=== PATIENT | male | born 1945 | race Caucasian/White ===

== ENCOUNTER → 2017-12-14 | Outpatient (CLI) | payer OTHER ==
[~2017-12-14] VITALS: Ht 167.6 cm; Wt 70.3 kg
[~2017-12-14] MED LIST: ADULT LOW DOSE81 MG PO; ALPRAZOLAM 0.0.25 M1 PO; ALTACE10 M1 PO; AMBIEN 10 MG TA10 MG PO; CARVEDILOL12.5 MG PO; CEFDINIR PO; CELEBREX 200 M200 M1 PO; CELLCEPT500 MG PO; CLARITIN10 MG PO; DARVOCET-N 1001 EACH PO; DIPROLENE 0.05%15 GM TP; DIPROLENE AF 0.15 GM TP; FISH OIL 1,0001 EAC5 PO; FLONASE; HYDROXYZINE HCL10 M1 PO; LIPITOR40 MG PO; LORTAB 7.5/5001 TA1 PO; LOZOL PO; MEDROLDOSEPACK PO; MOBIC7.5 MG PO; MULTIPLE VITAM1 EAC3 PO; NABUMETONE 500500 M1 PO; NEXIUM20 M1 PO; NIASPAN ER 101000 M1 PO; NORCO 5-325 TA1 EACH PO; PERCOCET 5-3251 EACH PO; PERCOCET PO; RESTASIS1 EACH OP; TACLONEX OINTME60 GM TP; ZADITOR5 M1 OP; ZETIA10 MG PO; ZYRTEC 10 MG TA10 MG PO; ZYRTEC10 M2 PO
--- NOTE | ~2017-12-14 | HPC ---
[facility] [place] [address] PAIN MANAGEMENT CONSULTATION Name: MELANIE PONCE Room #: REG [facility]..#: [id number] Admission: 12/14/17 Attend Phys: Mikey Brady DO Discharge: Date of : 46 Report #: [id number] THIS REPORT FOR: //name// CC: Mikey Deleon MD DATE OF SERVICE: 12/14/2017 REFERRING PHYSICIAN: Marek Deleon MD CHIEF COMPLAINT: Low back pain, left lower extremity pain and paresthesias. HISTORY OF PRESENT ILLNESS: As you know, the patient is a 72-year-old male with longstanding history of low back pain, left lower extremity pain and paresthesias. The patient states he had an exacerbation of symptoms that began 06/09/2017. He denies specific injury or trauma that may have led to symptom development. The patient was seen in consultation on 12/06/2017, diagnosed with presumptive diagnosis of lumbar radiculopathy with concerns of displaced lumbar intervertebral disks. The patient was subsequently sent for MRI to further evaluate his condition and so that more definitive treatment options could be discussed. We did discuss at length generalized treatment options for lumbar radicular symptoms. He returns today in followup visit indicating a pain level of approximately 2-3/10. He wishes to review his MRI and to discuss the possibility of undergoing a lumbar epidural injection if it is appropriate. ALLERGIES: SULFA, CARISOPRODOL, KEFLEX, LEVOFLOXACIN, and CEFDINIR. CURRENT MEDICATIONS: Percocet 5/325 one tab every 12 hours p.r.n. for pain, nabumetone 500 mg twice a day, CellCept 500 mg once a day, celecoxib 200 mg twice a day, zolpidem 10 mg p.o. at bedtime, Zetia 10 mg per day, hydroxyzine 10 mg p.o. at bedtime, carvedilol 12.5 mg twice a day, aspirin 81 mg per day, omega-3 fish oil 1 tab per day, alprazolam 0.25 mg p.r.n., Zaditor one drop each eye per day, omeprazole 20 mg per day, atorvastatin 40 mg per day, ramipril 10 mg per day, fluticasone 1 spray each nostril per day. SOCIAL HISTORY: The patient denies tobacco, alcohol, IV or illicit drug use. 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 IMAGING: MRI of the lumbar spine obtained 12/13/2017, shows T12-L1 and L1-L2 unremarkable. L2-L3, mild circumferential disk bulge, mild narrowing of the neural foramen, mild facet arthropathy. L3-L4, progressive narrowing of disk space, foraminal stenosis noted, post-surgical changes noted, thecal sac measuring 1.3 cm. L4-L5, redemonstration of marked narrowing of disk space, diffuse annular disk bulge, facet hypertrophy noted, neural foraminal [address] [address] PAIN MANAGEMENT CONSULTATION Name: MELANIE PONCE Room #: MAYNOR [facility]#: [id number] Admission: 12/14/17 Attend Phys: Mikey Brady DO Discharge: Date of : 46 Report #: [id number] encroachment noted, posterior left element surgical changes suggested. Thecal sac measures 1.7 cm. L5-S1, marked narrowing of disk space, circumferential disk bulge, progression noted compared to previous exam, abutment of the anterior S1 nerve roots noted, neural foraminal narrowing encroachment is severe, abutment of the medial left L5 nerve root, greater on the left that the right, greater displacement and abutment of the left S1 nerve root is also noted. PHYSICAL EXAMINATION: VITAL SIGNS: Blood pressure 112/77, pulse is 68, respiratory rate 16, unlabored, the patient is 98% on room air, height 5 feet 6 inches tall, weight 155 pounds, and BMI calculated 25. GENERAL: Well-developed, well-nourished, well-hydrated 72-year-old male, he appears his stated age, he is placing current pain score at 2-3/10. HEENT: Normocephalic, atraumatic. Pupils are equal, round, and reactive to light. Extraocular muscles are intact. EXTREMITIES: Show no clubbing, no cyanosis, and no edema. MUSCULOSKELETAL: Lower extremity strength remains symmetrical 5/5. His gait is mildly antalgic favoring left lower extremity. Seated straight leg raising negative. Supine straight leg raising positive on the left. Fransisco's test negative. ASSESSMENT: 1. Symptomatic lumbar radiculopathy. 2. Displacement of lumbar intervertebral disk with radiculopathy. 3. Severe neural foraminal stenosis of lumbar spine. 4. Lumbosacral spondylosis with radiculopathy. 5. Failed lumbar spine surgery. 6. Lumbar degeneration. 7. Chronic intractable pain. PLAN: 1. The patient returns today in followup visit where we reviewed his MRI in its entirety. We took 22 minutes of time to discuss the MRI and the findings therein and to correlate to his current physical findings. It does appear the patient is suffering from changes at the L5-S1 level, which is consistent with the findings on physical exam. We discussed with the patient the options for treatment after reviewing the MRI, following was discussed with the patient today. We discussed physical therapy, stretching exercises and core strengthening as a treatment option. We discussed medication management with the addition of a neuropathic pain medication in conjunction with his already provided opioids. We discussed epidural injection under fluoroscopic guidance, spinal cord stimulator therapy and surgical options. After reviewing risks and benefits of all proposed treatment options, the patient chose to undergo epidural injection [facility] [address] [place] [address] PAIN MANAGEMENT CONSULTATION Name: MELANIE PONCE Room #: REG TIEN [place]#: [id number] Admission: 12/14/17 Attend Phys: Mikey Brady DO Discharge: Date of : 46 Report #: [id number] under fluoroscopic guidance. 2. The patient was advised risks and benefits of a lumbar epidural injection, these risks include, but are not necessarily limited to bleeding, bruising, infection, worsening of pain, no relief of pain, also risk of temporary or permanent muscle weakness, temporary or permanent nerve damage, possible paralysis and . The patient states understood and wished to proceed. 3. No medication changes made at today's visit, the patient continues current medical therapy as previously prescribed. 4. We will see the patient back in followup visit on an as needed basis for possible next in the series of epidural injections. PROCEDURE NOTE DESCRIPTION OF PROCEDURE: L5-S1 left paramedian epidural steroid injection under fluoroscopic guidance. This is the first procedure of the first series that the patient is undergoing. After obtaining written consent, the patient was taken back to the fluoroscopy suite, placed in a prone position with pillow under the abdomen to decrease lumbar lordosis. The skin overlying the lumbosacral area was then prepped and draped in aseptic fashion. The L5-S1 vertebral interspace was then identified by AP fluoroscopy. The skin and subcutaneous tissue overlying the target site of injection was anesthetized with 3 mL 1% lidocaine. A 20-gauge 3-1/2-inch Tuohy needle was then advanced under fluoroscopic guidance towards the epidural space using a left paramedian approach. The epidural space was identified using loss of resistance to air technique. After negative aspiration for heme or cerebrospinal fluid, a total of 0.5 mL of Omnipaque was injected. A lumbar epidurogram was confirmed using both AP and lateral fluoroscopy. After negative aspiration for heme or cerebrospinal fluid, 5 mL of a solution containing 2 mL 40 mg per mL, 80 mg total triamcinolone, 3 mL lidocaine 1% was injected in increments. Contrast spread was noted posterior epidural space. The needle was then retracted approximately half way and needle tract flushed with 1 mL of 1% lidocaine. Needle was then removed. There were no apparent sensory or motor deficits in the lower extremity following the procedure. A sterile bandage was placed over the injection site. The heart rate, pulse, oximetry and blood pressure were continuously monitored after the procedure. There were no apparent complications. The patient tolerated the procedure well and was carefully escorted [place] [address] PAIN MANAGEMENT CONSULTATION Name: MELANIE PONCE Room #: REG TIEN [place]#: [id number] Admission: 12/14/17 Attend Phys: Mikey Brady DO Discharge: Date of : 46 Report #: [id number] stable condition. There were no apparent complications. After meeting discharge criteria, the patient was then discharged home. <ELECTRONICALLY SIGNED> By: Mikey Brady DO 12/20/17 1441 0801 1341 Mikey Brady DO /nt
[2017-12-14 08:39] VITALS: BP 112/77
== END | disposition home or self-care (01) ==
LOC: PAIN 06:40
DX: M51.16 Intervertebral disc disorders with radiculopathy, lumbar region (principal); M48.061 Spinal stenosis, lumbar region without neurogenic claudication; M47.27 Other spondylosis with radiculopathy, lumbosacral region; M96.1 Postlaminectomy syndrome, not elsewhere classified; G89.29 Other chronic pain; Z88.2 Allergy status to sulfonamides; Z88.8 Allergy status to other drugs, medicaments and biological substances; Z79.899 Other long term (current) drug therapy; Z79.82 Long term (current) use of aspirin

== ENCOUNTER → 2017-12-28 | Outpatient (CLI) | payer OTHER ==
[~2017-12-28] VITALS: Ht 162.6 cm; Wt 70.0 kg
--- NOTE | ~2017-12-28 | HPC ---
[facility] [address] [place] [address] PAIN MANAGEMENT CONSULTATION Name: MELANIE PONCE Room #: REG [facility]..#: [id number] Admission: 12/28/17 Attend Phys: Mikey Brady DO Discharge: Date of : 46 Report #: [id number] THIS REPORT FOR: //name// CC: Mikey Deleon MD DATE OF SERVICE: 12/28/2017 REFERRING PHYSICIAN: Marek Deleon MD CHIEF COMPLAINT: Low back pain, left lower extremity pain and paresthesias. HISTORY OF PRESENT ILLNESS: As you know, the patient is a very pleasant 72-year-old male who returns today in followup visit reporting a 50% improvement in overall pain with the epidural injection provided at last visit. He returns today in followup visit with pain score 3/10, states pain is exacerbated with standing and walking long distances, it improves with sitting and epidural injections. He indicates pain radiates from the left low back to the left buttock and down to the left leg, all the way down to the foot. He returns to undergo the second in series of epidural injections under fluoroscopic guidance to build on success of previous intervention. The patient denies new injury, new trauma or any changes in medical history since our last visit. ALLERGIES: SULFA, CARISOPRODOL, CEPHALEXIN, LEVOFLOXACIN, and CEFDINIR. CURRENT MEDICATIONS: CellCept, celecoxib, zolpidem, Zetia, hydroxyzine, carvedilol, Diprolene, oxycodone, Taclonex, aspirin, omega-3 fish oil, alprazolam, Zaditor, omeprazole, atorvastatin, ramipril, fluticasone, and cetirizine. SOCIAL HISTORY: The patient denies tobacco, alcohol, IV or illicit drug use. 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 IMAGING: No new imaging available. PHYSICAL EXAMINATION: VITAL SIGNS: Blood pressure 117/78, pulse 64, respiratory rate 14 and unlabored, the patient is 100% on room air, height 5 feet 4 inches tall, weight 154.4 pounds, and BMI calculated 26.5. GENERAL: Well-developed, well-nourished, well-hydrated 72-year-old male, he appears his stated age, placing current pain score around 3/10. HEENT: Normocephalic, atraumatic. Pupils are equal, round, and reactive to light. EXTREMITIES: Show no clubbing, no cyanosis, and no edema. [address] [address] PAIN MANAGEMENT CONSULTATION Name: MELANIE PONCE Room #: REG [facility] Amor#: [id number] Admission: 12/28/17 Attend Phys: Mikey Brady DO Discharge: Date of : 46 Report #: [id number] MUSCULOSKELETAL: Seated straight leg raising negative. Supine straight leg raising positive on the left. Fransisco's test negative. Modified Gaenslen's positive for axial low back pain. Gait mildly antalgic favoring left lower extremity over right. Muscle bulk and tone equal and symmetrical in lower extremities. ASSESSMENT: 1. Symptomatic lumbar radiculopathy. 2. Displacement of lumbar intervertebral disk with radiculopathy. 3. Severe neural foraminal stenosis of lumbar spine. 4. Lumbosacral spondylosis with radiculopathy. 5. Failed lumbar spine surgery. 6. Lumbar degeneration. 7. Chronic intractable pain. PLAN: 1. The patient returns today in followup visit having reported a 50% improvement in overall pain with the epidural injection provided at last visit. He is excited to undergo next in the series of epidural injections in hopes of building on success of previous intervention. The patient and I discussed the risks and the benefits of the procedure, he states he understood and wished to proceed. 2. No medication changes were made at today's visit, the patient will continue current medical therapy as previously prescribed. 3. We will see the patient back in followup visit on an as needed basis for the third and final epidural injection in the 6 months to address lumbar radicular symptoms and his left lower extremity pain with paresthesias. PROCEDURE NOTE DESCRIPTION OF PROCEDURE: L5-S1 left paramedian epidural steroid injection under fluoroscopic guidance. This is the second procedure of the first series that the patient is undergoing. After obtaining written consent, the patient was taken back to the fluoroscopy suite, placed in a prone position with pillow under the abdomen to decrease lumbar lordosis. The skin overlying the lumbosacral area was then prepped and draped in aseptic fashion. The L5-S1 vertebral interspace was then identified by AP fluoroscopy. The skin and subcutaneous tissue overlying the target site of injection was anesthetized with 3 mL 1% lidocaine. A 20-gauge 3-1/2-inch Tuohy needle was then advanced under fluoroscopic guidance towards the epidural space using a left paramedian approach. The epidural space was identified using loss of resistance to air technique. After negative aspiration for heme or cerebrospinal fluid, a total of 1 mL of Omnipaque was [address] [address] PAIN MANAGEMENT CONSULTATION Name: MELANIE PONCE Room #: MAYNOR [facility]#: [id number] Admission: 12/28/17 Attend Phys: Mikye Brady DO Discharge: Date of : 46 Report #: [id number] injected. A lumbar epidurogram was confirmed using both AP and lateral fluoroscopy. After negative aspiration for heme or cerebrospinal fluid, 5 mL of a solution containing 2 mL 40 mg per mL, 80 mg total triamcinolone, 3 mL lidocaine 1% was injected in increments. Contrast spread was noted posterior epidural space. The needle was then retracted approximately half way and needle tract flushed with 1 mL of 1% lidocaine. Needle was then removed. There were no apparent sensory or motor deficits in the lower extremity following the procedure. A sterile bandage was placed over the injection site. The heart rate, pulse, oximetry and blood pressure were continuously monitored after the procedure. There were no apparent complications. The patient tolerated the procedure well and was carefully escorted to the recovery room in stable condition. There were no apparent complications. After meeting discharge criteria, the patient was then discharged home. <ELECTRONICALLY SIGNED> By: Mikey Brady DO 12/29/17 0817 0920 1642 Mikey Brady DO /nt
[2017-12-28 08:38] VITALS: BP 117/78
== END | disposition home or self-care (01) ==
LOC: PAIN 07:29
DX: M51.16 Intervertebral disc disorders with radiculopathy, lumbar region (principal); M48.061 Spinal stenosis, lumbar region without neurogenic claudication; M47.27 Other spondylosis with radiculopathy, lumbosacral region; M96.1 Postlaminectomy syndrome, not elsewhere classified; G89.29 Other chronic pain; Z88.2 Allergy status to sulfonamides; Z88.8 Allergy status to other drugs, medicaments and biological substances; Z79.891 Long term (current) use of opiate analgesic; Z79.899 Other long term (current) drug therapy; Z79.82 Long term (current) use of aspirin; Z98.890 Other specified postprocedural states

== ENCOUNTER → 2018-02-22 | Outpatient (CLI) | payer OTHER ==
[~2018-02-22] VITALS: Ht 167.6 cm; Wt 70.2 kg
[~2018-02-22] MED LIST changes: +NEURONTIN 300300 M1 PO
--- NOTE | ~2018-02-22 | HPC ---
[facility] [address] [place] [address] PAIN MANAGEMENT CONSULTATION Name: MELANIE PONCE Room #: REG [facility]..#: [id number] Admission: 02/22/18 Attend Phys: Mikey Brady DO Discharge: Date of : 46 Report #: [id number] THIS REPORT FOR: //name// CC: Mikey Deleon MD DATE OF SERVICE: 02/22/2018 CHIEF COMPLAINT: Low back pain, left lower extremity pain and paresthesias. HISTORY OF PRESENT ILLNESS: As you know, the patient is a very pleasant 72-year-old male who returns today in followup visit with continued pain for which he provides pain score of 2/10. States his pain is numbness, aching in sensation, exacerbated with standing, improves with sitting and previous epidural injections. The patient reports previous epidural injection gave 60% improvement in overall pain, which is ongoing. He returns today in followup visit to undergo the third and the final in this 6-month series of injections. He was advised that his next injection would be 08/07/2018. The patient does wish to undergo the procedure despite the fact that this is the last injection he can have until August. ALLERGIES: SULFA, CARISOPRODOL, CEPHALEXIN, LEVOFLOXACIN, CEFDINIR. CURRENT MEDICATIONS: CellCept, celecoxib, zolpidem, Zetia, hydroxyzine, carvedilol, Diprolene, oxycodone, Taclonex, aspirin, omega-3 fish oil, alprazolam, Zaditor, omeprazole, atorvastatin, ramipril, fluticasone, cetirizine. SOCIAL HISTORY: The patient denies tobacco, alcohol, IV or illicit drug use. 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 IMAGING: There is no new imaging available. PHYSICAL EXAMINATION: VITAL SIGNS: Blood pressure 117/74, pulse is 79, respiratory rate 16 and unlabored. The patient is 97% on room air. Height 5 feet 6 inches tall, weight 154.8 pounds, BMI calculated 25.0. GENERAL: Well-developed, well-nourished, well-hydrated 72-year-old male, appearing his stated age, placing current pain score around 2/10. HEENT: Normocephalic, atraumatic. Pupils equal, round, reactive to light. Extraocular muscles are intact. NEUROLOGIC: Speech fluent. The patient deemed an excellent historian. EXTREMITIES: Show no clubbing, no cyanosis, no edema. MUSCULOSKELETAL: Lower extremity strength appears symmetrical 5/5. [place] [address] PAIN MANAGEMENT CONSULTATION Name: MELANIE PONCE Room #: REG [facility]..#: [id number] Admission: 02/22/18 Attend Phys: Mikey Brady DO Discharge: Date of : 46 Report #: [id number] intact to light touch from L1 through S2 dermatomes. Seated straight leg raising negative. Supine straight leg raising positive on the left. BRIAN test negative. Modified Gaenslen's positive for axial low back pain. Ankle clonus negative. Babinski is negative. Gait is antalgic favoring left lower extremity over right. ASSESSMENT: 1. Symptomatic lumbar radiculopathy. 2. Displacement of lumbar intervertebral disk with radiculopathy. 3. Lumbosacral spondylosis with radiculopathy. 4. Failed lumbar spine surgery. 5. Lumbar degeneration. 6. Chronic intractable pain. PLAN: 1. The patient returns today in followup visit requesting to undergo the third and the final of epidural injections in 6 months. The patient was advised his next available injection will be 08/07/2018. The patient states he does wish to undergo the procedure as he is experiencing 2/10 pain and has not been able to return to all activities of daily living for which he is undergoing the procedure. He has been advised of the risks and benefits, states understood and wished to proceed. 2. The patient was given information about a spinal cord stimulator as an option for treatment. He will review the information given today. If he does choose to move forward with this, he will need to make an appointment back with us to get consultations established and to begin the process of approvals for a spinal cord stimulator trial. If the patient is interested in contacting our clinic, to be seen again in followup. 3. The patient was provided prescription of gabapentin. He will begin at 300 mg dose. Continue for 5 nights, then double to 600 mg dose for 5 nights. If no improvement in symptoms, no side effects, then triple to 900 mg at night for another 5 nights. If again no improvement in symptoms, no side effects, will begin 1 tab in the morning, continuing 3 tabs at night. The patient was given a prescription of gabapentin 300 mg dose, #120, 2 refills. The patient was advised anytime during the titration of medication he notes improvement in symptoms, stabilize with that dose, no improvement in symptoms, no side effects, continue the titration as directed. The patient was given the titration in written form today to follow as directed. 4. We will see the patient back in followup visit, 08/07/2018 for the next in a series of epidural injections. Otherwise, we will see him back in followup visit to discuss the possibility of beginning process of evaluation for spinal cord stimulator or for medication management. PROCEDURE NOTE DESCRIPTION OF PROCEDURE: Lumbar epidural steroid injection under fluoroscopic [facility] [address] [place] [address] PAIN MANAGEMENT CONSULTATION Name: MELANIE PONCE [facility] [id number] Admission: 02/22/18 Attend Phys: Mikey Brady DO Discharge: Date of : 46 Report #: [id number] guidance. After obtaining written consent, the patient was taken back to fluoroscopy suite, placed in prone position with pillow under abdomen to decrease lumbar lordosis. Skin overlying lumbosacral area then prepped and draped in aseptic fashion. The L5-S1 vertebral interspace identified by AP fluoroscopy. Skin and subcutaneous tissue overlying target site of injection anesthetized with 3 mL of 1% lidocaine. A 20-gauge 3-1/2 inch Tuohy needle advanced under fluoroscopic guidance towards the epidural space using a paramedian approach. Epidural space identified using loss of resistance to air technique. After negative aspiration for heme or cerebrospinal fluid, 1 mL of Omnipaque injected. Lumbar epidurogram confirmed using both AP and lateral fluoroscopy. After negative aspiration for heme or cerebrospinal fluid, 5 mL of a solution containing 2 mL 40 mg per mL, 80 mg total triamcinolone, 3 mL lidocaine 1% injected slowly. Needle retracted senior living, flushed with 1 mL of 1% lidocaine and removed. Sterile bandage placed over injection site. No new motor deficits present in lower extremity following procedure. The patient tolerated the procedure well, carefully escorted to recovery room in stable condition. No apparent complications. After meeting discharge criteria, the patient discharged home. <ELECTRONICALLY SIGNED> By: Mikey Brady DO 02/24/18 0734 1218 2209 Mikey Brady DO /nt
[2018-02-22 08:15] VITALS: BP 117/74
== END | disposition home or self-care (01) ==
LOC: PAIN 06:54
DX: M51.16 Intervertebral disc disorders with radiculopathy, lumbar region (principal); M47.27 Other spondylosis with radiculopathy, lumbosacral region; M96.1 Postlaminectomy syndrome, not elsewhere classified; G89.29 Other chronic pain; Z98.890 Other specified postprocedural states; Z79.891 Long term (current) use of opiate analgesic; Z79.82 Long term (current) use of aspirin; Z79.899 Other long term (current) drug therapy; Z88.2 Allergy status to sulfonamides